=== PATIENT | female | born 1945 | race Caucasian/White ===

== ENCOUNTER 2022-03-14 12:04 | Inpatient (IN) | payer MEDICARE, OTHER ==
[~2022-03-14] VITALS: Ht 172.7 cm; Wt 88.0 kg
[2022-03-14 12:15] VITALS: BP 150/71
[2022-03-14 13:01] LABS: BASO % 0.6 % (0.0-1.0); EOS # 0.2 10*3/uL (0.0-0.4); EOS % 3.1 % (1.0-4.0); HEMATOCRIT 35.5 % (37.0-47.0); LYMPH # 1.3 10*3/uL (1.3-4.4); LYMPH % 24.6 % (27.0-41.0); MEAN CELL VOLUME 99.2 fl (81.0-99.0); MEAN CORPUSCULAR HGB 34.4 pg (27.0-31.0); MEAN CORPUSCULAR HGB CONC 34.6 g/dl (33.0-37.0); MEAN PLATELET VOLUME 8.7 fl (9.6-12.3); MONO # 0.3 10*3/uL (0.1-1.0); MONO % 5.6 % (3.0-9.0); NEUT # 3.4 10*3/uL (2.3-7.9); NEUT % 65.9 % (47.0-73.0); PLATELET COUNT AUTOMATED 207 10*3/uL (130-400); RED BLOOD COUNT 3.58 10*6/uL (4.10-5.10); WHITE BLOOD COUNT 5.2 10*3/uL (4.8-10.8)
[2022-03-14 13:13] LABS: ACT PARTIAL THROMBO TIME 24.9 SECONDS (20.0-32.1)
[2022-03-14 13:20] LABS: ALKALINE PHOSPHATASE 76 U/L (45-117); BUN 19 mg/dl (7-24); CHLORIDE 110 mmol/L (98-107); CREATININE 1.06 mg/dL (0.55-1.02); LIPASE 310 U/L (73-393); POTASSIUM 4.3 mmol/L (3.5-5.1); SGOT/AST 21 IU/L (3-35); SGPT/ALT 31 U/L (12-78); SODIUM 141 mmol/L (136-145); TOTAL PROTEIN 6.7 gm/dL (6.4-8.2)
[2022-03-14] MEDS ORDERED: Synthroid,Lev200 MCG PO (13:37)
[2022-03-14] MEDS ORDERED: TRULICITY1.5 MG/0.5 SC (13:38)
[2022-03-14] MEDS ORDERED: PROVENTIL HFA6.7 GM INH (13:39)
[2022-03-14 13:59] VITALS: BP 125/99
[2022-03-14 17:35] VITALS: BP 159/69
[2022-03-14] MEDS ORDERED: CRESTOR10 M1 PO (18:49)
[2022-03-14] MEDS ORDERED: SERTRALINE HYDR50 MG PO (18:50)
[2022-03-14 20:00] VITALS: BP 175/71
[2022-03-15] VITALS: BP 189/73
[2022-03-15 06:13] LABS: ALKALINE PHOSPHATASE 65 U/L (45-117); BUN 17 mg/dl (7-24); CHLORIDE 108 mmol/L (98-107); CHOLESTEROL 180 mg/dL (<200); CREATININE 1.03 mg/dL (0.55-1.02); FREE T4 1.39 ng/dl (0.76-1.46); POTASSIUM 4.3 mmol/L (3.5-5.1); SGOT/AST 26 IU/L (3-35); SGPT/ALT 31 U/L (12-78); SODIUM 142 mmol/L (136-145); TOTAL PROTEIN 6.5 gm/dL (6.4-8.2); TRIGLYCERIDES 264 mg/dl (<150)
[2022-03-15 06:21] LABS: LDL CHOLESTEROL 81 mg/dL (9-159); THYROID STIM HORMONE (HS) 0.034 uIU/ml (0.358-4.75)
[2022-03-15 06:41] LABS: BASO % 0.3 % (0.0-1.0); EOS # 0.2 10*3/uL (0.0-0.4); EOS % 3.5 % (1.0-4.0); HEMATOCRIT 34.3 % (37.0-47.0); LYMPH # 1.8 10*3/uL (1.3-4.4); LYMPH % 27.7 % (27.0-41.0); MEAN CELL VOLUME 98.8 fl (81.0-99.0); MEAN CORPUSCULAR HGB 34.3 pg (27.0-31.0); MEAN CORPUSCULAR HGB CONC 34.7 g/dl (33.0-37.0); MONO # 0.4 10*3/uL (0.1-1.0); MONO % 6.2 % (3.0-9.0); NEUT # 4.1 10*3/uL (2.3-7.9); NEUT % 62.1 % (47.0-73.0); PLATELET COUNT AUTOMATED 212 10*3/uL (130-400); RED BLOOD COUNT 3.47 10*6/uL (4.10-5.10); RED CELL DISTRI WIDTH 11.8 % (0-14.5); WHITE BLOOD COUNT 6.7 10*3/uL (4.8-10.8)
[2022-03-15 08:00] VITALS: BP 163/74
[2022-03-15 12:00] VITALS: BP 142/61
[2022-03-15 16:00] VITALS: BP 145/74
[2022-03-15] MEDS ORDERED: CLOPIDOGREL75 MG PO (16:59)
[2022-03-15] MEDS ORDERED: ASPIRIN ADULT L81 M2 PO (16:59)
== END 2022-03-15 18:12 | disposition home or self-care (01) | DRG 66 ==
LOC: ED 12:04 → 5E 15:25 → EDHOLD 15:25 → 5E 16:21
PROVIDERS: Emergency Medicine; Internal Medicine; ADMIT Internal Medicine; ATTEND Internal Medicine
DX: I63.9 Cerebral infarction, unspecified (principal); R29.702 NIHSS score 2; E03.9 Hypothyroidism, unspecified; M19.90 Unspecified osteoarthritis, unspecified site; E11.9 Type 2 diabetes mellitus without complications; I10 Essential (primary) hypertension; F41.9 Anxiety disorder, unspecified; Z88.0 Allergy status to penicillin; Z88.6 Allergy status to analgesic agent; Z88.1 Allergy status to other antibiotic agents; Z91.041 Radiographic dye allergy status; Z90.710 Acquired absence of both cervix and uterus; Z82.49 Family history of ischemic heart disease and other diseases of the circulatory system; Z83.3 Family history of diabetes mellitus; Z82.3 Family history of stroke

== ENCOUNTER 2023-03-24 15:10 | Emergency (ER) | payer MEDICARE, OTHER ==
[~2023-03-24] VITALS: Ht 172.7 cm; Wt 90.7 kg
[~2023-03-24 15:10] MED LIST: ASPIRIN ADULT L81 M2 PO; AVPAK AZITHROM250 M1 PO; CEFDINIR300 MG PO; CEFTRIAXONE2 G1 IV; CLOPIDOGREL75 MG PO; CRESTOR10 M1 PO; PROVENTIL HFA6.7 GM INH; SERTRALINE HYDR50 MG PO; Synthroid,Lev200 MCG PO; TRULICITY1.5 MG/0.5 SC
[2023-03-24 16:58] LABS: BASO % 0.2 % (0.0-1.0); EOS # 0.1 10*3/uL (0.0-0.4); EOS % 1.4 % (1.0-4.0); HEMATOCRIT 35.1 % (37.0-47.0); LYMPH # 1.1 10*3/uL (1.3-4.4); LYMPH % 18.6 % (27.0-41.0); MEAN CORPUSCULAR HGB 34.9 pg (27.0-31.0); MEAN CORPUSCULAR HGB CONC 35.6 g/dl (33.0-37.0); MEAN PLATELET VOLUME 8.6 fl (9.6-12.3); MONO # 0.3 10*3/uL (0.1-1.0); MONO % 4.3 % (3.0-9.0); NEUT # 4.4 10*3/uL (2.3-7.9); PLATELET COUNT AUTOMATED 182 10*3/uL (130-400); RED BLOOD COUNT 3.58 10*6/uL (4.10-5.10); RED CELL DISTRI WIDTH 11.9 % (0-14.5); WHITE BLOOD COUNT 5.9 10*3/uL (4.8-10.8)
[2023-03-24] MEDS ORDERED: LOSARTAN POTASS25 M1 PO (17:06)
[2023-03-24 17:11] LABS: ACT PARTIAL THROMBO TIME 21.9 SECONDS (20.0-32.1)
[2023-03-24 17:20] LABS: ALKALINE PHOSPHATASE 65 U/L (46-116); BUN 15 mg/dl (9-23); CHLORIDE 104 mmol/L (98-107); LIPASE 51 U/L (12-53); POTASSIUM 3.8 mmol/L (3.4-5.1); SGPT/ALT 29 U/L (10-49); TOTAL PROTEIN 6.8 gm/dL (6.0-8.0)
[2023-03-24 18:28] LABS: BILIRUBIN Negative (Negative); BLOOD Negative (Negative); CLARITY Clear (Clear); COLOR Yellow (Yellow); GLUCOSE Negative (Negative); KETONE Negative (Negative); LEUKO ESTERASE Negative (Negative); NITRITE Negative (Negative); PH 6.5 (4.5-8.0); UROBILINOGEN 0.2 E.U./dl (0.0-1.0)
[2023-03-24 18:35] LABS: RBC 0-2 rbc/hpf (0-2); WBC 0-2 wbc/hpf (0-5)
[2023-03-24 18:36] LABS: BACTERIA TRACE
[2023-03-29] MEDS ORDERED: METOPROLOL SUCC25 M2 PO (11:29)
[2023-03-29] MEDS ORDERED: ATORVASTATIN CA80 M1 PO (11:29)
[2023-03-29] MEDS ORDERED: VITAMIN D3125 MC1 PO (11:29)
== END 2023-03-24 21:38 | disposition home or self-care (01) ==
LOC: ED 15:10
PROVIDERS: Emergency Medicine
DX: B34.9 Viral infection, unspecified (principal); R11.2 Nausea with vomiting, unspecified; F41.9 Anxiety disorder, unspecified; M19.90 Unspecified osteoarthritis, unspecified site; E11.9 Type 2 diabetes mellitus without complications; I10 Essential (primary) hypertension; E03.9 Hypothyroidism, unspecified; Z88.1 Allergy status to other antibiotic agents; Z88.0 Allergy status to penicillin; Z88.5 Allergy status to narcotic agent; Z91.041 Radiographic dye allergy status; Z79.2 Long term (current) use of antibiotics; Z79.82 Long term (current) use of aspirin; Z79.899 Other long term (current) drug therapy; Z90.89 Acquired absence of other organs; Z90.711 Acquired absence of uterus with remaining cervical stump

== ENCOUNTER 2023-05-29 17:09 | Emergency (ER) | payer MEDICARE, OTHER ==
[~2023-05-29] VITALS: Ht 172.7 cm; Wt 86.2 kg
[~2023-05-29 17:09] MED LIST changes: +ATORVASTATIN CA80 M1 PO; +LOSARTAN POTASS25 M1 PO; +METOPROLOL SUCC25 M2 PO; +VITAMIN D3125 MC1 PO
[2023-05-29] MEDS ORDERED: NAPROXEN250 MG PO (22:40)
== END 2023-05-29 22:43 | disposition home or self-care (01) ==
LOC: ED 17:09
DX: S70.02XA Contusion of left hip, initial encounter (principal); Z88.1 Allergy status to other antibiotic agents; Z88.0 Allergy status to penicillin; Z88.5 Allergy status to narcotic agent; Z91.041 Radiographic dye allergy status; Z79.899 Other long term (current) drug therapy; Z79.82 Long term (current) use of aspirin; Z90.89 Acquired absence of other organs; Z90.711 Acquired absence of uterus with remaining cervical stump; W18.09XA Striking against other object with subsequent fall, initial encounter; Y93.89 Activity, other specified; Y92.89 Other specified places as the place of occurrence of the external cause; Y99.8 Other external cause status

== ENCOUNTER 2023-07-23 13:45 | Emergency (ER) | payer MEDICARE, OTHER ==
[~2023-07-23] VITALS: Ht 172.7 cm; Wt 88.9 kg
[~2023-07-23 13:45] MED LIST changes: +NAPROXEN250 MG PO
[2023-07-23 16:46] LABS: BASO % 0.4 % (0.0-1.0); EOS # 0.3 10*3/uL (0.0-0.4); EOS % 3.4 % (1.0-4.0); HEMATOCRIT 37.2 % (37.0-47.0); LYMPH # 2.4 10*3/uL (1.3-4.4); LYMPH % 24.2 % (27.0-41.0); MEAN CELL VOLUME 97.9 fl (81.0-99.0); MEAN CORPUSCULAR HGB 34.5 pg (27.0-31.0); MEAN CORPUSCULAR HGB CONC 35.2 g/dl (33.0-37.0); MEAN PLATELET VOLUME 8.6 fl (9.6-12.3); MONO # 0.5 10*3/uL (0.1-1.0); MONO % 5.2 % (3.0-9.0); NEUT # 6.5 10*3/uL (2.3-7.9); PLATELET COUNT AUTOMATED 289 10*3/uL (130-400); RED CELL DISTRI WIDTH 11.3 % (0-14.5); WHITE BLOOD COUNT 9.8 10*3/uL (4.8-10.8)
[2023-07-23 16:58] LABS: ACT PARTIAL THROMBO TIME 24.8 SECONDS (20.0-32.1)
[2023-07-23 17:04] LABS: ALKALINE PHOSPHATASE 77 U/L (46-116); BUN 18 mg/dl (9-23); CHLORIDE 108 mmol/L (98-107); LIPASE 49 U/L (12-53); POTASSIUM 3.7 mmol/L (3.4-5.1); SGPT/ALT 16 U/L (5-49); TOTAL PROTEIN 6.9 gm/dL (6.0-8.0)
[2023-07-23] MEDS ORDERED: ZITHROMAX250 MG PO (18:28)
== END 2023-07-23 18:53 | disposition home or self-care (01) ==
LOC: ED 13:45
PROVIDERS: Emergency Medicine
DX: J20.9 Acute bronchitis, unspecified (principal); I10 Essential (primary) hypertension; R10.2 Pelvic and perineal pain; E11.9 Type 2 diabetes mellitus without complications; Z91.041 Radiographic dye allergy status; Z88.0 Allergy status to penicillin; Z88.8 Allergy status to other drugs, medicaments and biological substances; Z88.5 Allergy status to narcotic agent; Z90.89 Acquired absence of other organs; Z90.711 Acquired absence of uterus with remaining cervical stump; F12.90 Cannabis use, unspecified, uncomplicated

== ENCOUNTER → 2023-10-16 | Outpatient (CLI) | payer MEDICARE, OTHER ==
[~2023-10-16] MED LIST changes: +COQ1050 MG PO; +COZAAR50 M1 PO; +CRESTOR5 M1 PO; -LOSARTAN POTASS25 M1 PO; +Regadenoson 0.4 MG/5 ML SYR IV ONE; +Technetium Tc 99M Tetrofosmi 0.23 MG KIT IJ SCH; +ZITHROMAX250 MG PO
== END | disposition home or self-care (01) ==
LOC: CARD 10-13 09:30
PROVIDERS: ATTEND Internal Medicine Cardiovascular Disease
DX: I12.9 Hypertensive chronic kidney disease with stage 1 through stage 4 chronic kidney disease, or unspecified chronic kidney disease (principal); E11.22 Type 2 diabetes mellitus with diabetic chronic kidney disease; N18.32 Chronic kidney disease, stage 3b; R06.02 Shortness of breath; R07.9 Chest pain, unspecified; Z86.79 Personal history of other diseases of the circulatory system

== ENCOUNTER 2023-12-01 09:40 | Emergency (ER) | payer MEDICARE, OTHER ==
[~2023-12-01] VITALS: Ht 172.7 cm; Wt 82.1 kg
[~2023-12-01 09:40] MED LIST changes: +BENZONATATE100 M1 PO; +CHEST CONGESTI400 MG PO; +LOSARTAN POTASS50 M1 PO; +NEURIVA ORIGIN1 EACH PO; +OMNICEF300 MG PO; +PREDNISONE10 MG PO; -Regadenoson 0.4 MG/5 ML SYR IV ONE; +TRELEGY ELLIPT1 EACH INH; +TURMERIC500 M2 PO; -Technetium Tc 99M Tetrofosmi 0.23 MG KIT IJ SCH; +VITAMIN D350 MC2 PO; +XARELTO20 M1 PO
[2023-12-01] MEDS ORDERED: Meclizine Hydrochloride 25 MG TAB PO ONE (09:45)
[2023-12-01] MEDS ORDERED: Ondansetron Hydrochloride 4 MG/2 ML VIAL IV ONE (09:45)
[2023-12-01] MEDS ORDERED: DIAZEPAM 5 MG TAB PO ONE (09:45)
[2023-12-01] MEDS ORDERED: SODIUM CHLORIDE 0.9% 1,000 ML IV ONE (09:45)
[2023-12-01 10:26] LABS: BASO % 0.4 % (0.0-1.0); EOS # 0.1 10*3/uL (0.0-0.4); EOS % 0.7 % (1.0-4.0); HEMATOCRIT 38.2 % (37.0-47.0); LYMPH # 1.2 10*3/uL (1.3-4.4); MEAN CELL VOLUME 98.2 fl (81.0-99.0); MEAN CORPUSCULAR HGB 33.4 pg (27.0-31.0); MEAN PLATELET VOLUME 8.6 fl (9.6-12.3); MONO # 0.3 10*3/uL (0.1-1.0); MONO % 4.2 % (3.0-9.0); NEUT # 5.8 10*3/uL (2.3-7.9); NEUT % 78.4 % (47.0-73.0); PLATELET COUNT AUTOMATED 213 10*3/uL (130-400); RED BLOOD COUNT 3.89 10*6/uL (4.10-5.10); RED CELL DISTRI WIDTH 12.2 % (0-14.5); WHITE BLOOD COUNT 7.4 10*3/uL (4.8-10.8)
[2023-12-01 10:41] LABS: ACT PARTIAL THROMBO TIME 24.8 SECONDS (20.0-32.1)
[2023-12-01 10:49] LABS: POTASSIUM 3.9 mmol/L (3.4-5.1)
[2023-12-01] MEDS ORDERED: AVPAK AZITHROM250 M1 PO (11:31)
[2023-12-01] MEDS ORDERED: ANTIVERT25 M2 PO (11:31)
[2023-12-01] MEDS ORDERED: ONDANSETRON4 MG SL (11:31)
== END 2023-12-01 12:55 | disposition home or self-care (01) ==
LOC: ED 09:40
PROVIDERS: Emergency Medicine
DX: H81.10 Benign paroxysmal vertigo, unspecified ear (principal); J40 Bronchitis, not specified as acute or chronic; R11.2 Nausea with vomiting, unspecified; E11.9 Type 2 diabetes mellitus without complications; I10 Essential (primary) hypertension; E78.5 Hyperlipidemia, unspecified; I48.91 Unspecified atrial fibrillation; E03.9 Hypothyroidism, unspecified; Z88.0 Allergy status to penicillin; K21.9 Gastro-esophageal reflux disease without esophagitis; Z88.2 Allergy status to sulfonamides; Z88.5 Allergy status to narcotic agent; Z88.8 Allergy status to other drugs, medicaments and biological substances; Z91.012 Allergy to eggs; Z90.89 Acquired absence of other organs; Z90.711 Acquired absence of uterus with remaining cervical stump; F12.90 Cannabis use, unspecified, uncomplicated

== ENCOUNTER 2023-12-20 19:00 | Emergency (ER) | payer MEDICARE, OTHER ==
[~2023-12-20] VITALS: Ht 160 cm; Wt 70.3 kg
[~2023-12-20 19:00] MED LIST changes: +ANTIVERT25 M2 PO; +ONDANSETRON4 MG SL
[2023-12-20] MEDS ORDERED: ASPIRIN81 M1 PO (19:11)
[2023-12-20] MEDS ORDERED: LIPITOR40 MG PO (19:11)
[2023-12-20] MEDS ORDERED: VALIUM2 MG PO (19:12)
[2023-12-20] MEDS ORDERED: CHEST CONGESTI400 MG PO (19:13)
[2023-12-20] MEDS ORDERED: LOSARTAN POTASS25 M1 PO (19:14)
[2023-12-20] MEDS ORDERED: METOPROLOL SUCC25 M2 PO (19:14)
[2023-12-20] MEDS ORDERED: Ondansetron4 MG PO (19:15)
[2023-12-20] MEDS ORDERED: OMEPRAZOLE40 MG PO (19:15)
[2023-12-20] MEDS ORDERED: SERTRALINE HYD100 MG PO (19:17)
[2023-12-20] MEDS ORDERED: Ondansetron Hydrochloride 4 MG TAB SL ONE (19:25)
== END 2023-12-21 00:11 | disposition home or self-care (01) ==
LOC: ED 19:00
DX: S22.32XA Fracture of one rib, left side, initial encounter for closed fracture (principal); S51.011A Laceration without foreign body of right elbow, initial encounter; E87.1 Hypo-osmolality and hyponatremia; M19.90 Unspecified osteoarthritis, unspecified site; F41.9 Anxiety disorder, unspecified; E11.9 Type 2 diabetes mellitus without complications; I10 Essential (primary) hypertension; K21.9 Gastro-esophageal reflux disease without esophagitis; Z91.012 Allergy to eggs; Z88.0 Allergy status to penicillin; Z88.2 Allergy status to sulfonamides; Z88.5 Allergy status to narcotic agent; Z88.8 Allergy status to other drugs, medicaments and biological substances; Z90.89 Acquired absence of other organs; Z90.711 Acquired absence of uterus with remaining cervical stump; F12.90 Cannabis use, unspecified, uncomplicated; W19.XXXA Unspecified fall, initial encounter; Y93.89 Activity, other specified; Y92.009 Unspecified place in unspecified non-institutional (private) residence as the place of occurrence of the external cause; Y99.8 Other external cause status